=== PATIENT | female | born 1945 | race Two or more races ===

== ENCOUNTER 2022-08-15 09:37 | Outpatient (CLI) | payer OTHER | END 2022-08-15 09:42 | disposition home or self-care (01) | LOC: MAMO-SONO 09:37 | DX: N64.51 Induration of breast (principal); Z12.31 Encounter for screening mammogram for malignant neoplasm of breast ==

== ENCOUNTER 2024-01-19 14:29 | Outpatient (CLI) | payer OTHER | END 2024-01-19 14:34 | disposition home or self-care (01) | LOC: MAMO-SONO 14:29 | PROVIDERS: ATTEND Obstetrics & Gynecology | DX: N64.51 Induration of breast (principal); Z12.31 Encounter for screening mammogram for malignant neoplasm of breast ==